=== PATIENT | female | born 1980 | race African-American/Black ===

== ENCOUNTER 2017-03-31 08:49 | Emergency (ER) | payer MEDICAID, OTHER ==
[~2017-03-31] VITALS: Ht 154.9 cm; Wt 97.5 kg
[~2017-03-31 08:49] MED LIST: LISI10TA6; LORA10CA7 PO; METF-370; PRAVASTATIN SODIUM 20 MG TAB
[2017-03-31 08:54] VITALS: BP 138/72
[2017-03-31] MEDS ORDERED: METHOCARBAMOL 500 MG TAB PO ONE (09:45)
[2017-03-31] MEDS ORDERED: KETOROLAC TROMETH 60MG/2ML VIAL IM ONE (09:45)
== END 2017-03-31 10:51 | disposition home or self-care (01) ==
LOC: ER 08:49
DX: S39.012A Strain of muscle, fascia and tendon of lower back, initial encounter (principal); E11.9 Type 2 diabetes mellitus without complications; E78.5 Hyperlipidemia, unspecified; I10 Essential (primary) hypertension; V49.49XA Driver injured in collision with other motor vehicles in traffic accident, initial encounter; Y93.89 Activity, other specified; Y99.8 Other external cause status; Y92.89 Other specified places as the place of occurrence of the external cause
CPT/HCPCS: 72110; 81025; 96372; 99284; J1885